=== PATIENT | male | born 1955 | race Caucasian/White ===

== ENCOUNTER 2016-11-08 14:31 | Emergency (ER) | payer MEDICAID ==
[~2016-11-08 14:31] MED LIST: LISINOPRIL 5 MG TAB PO SCH
[2016-11-08 14:51] VITALS: RESP 16; TEMP 97.9; O2SAT 96
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
[2016-11-08 17:06] VITALS: BP 200/110; PULSE 75
--- NOTE | 2016-11-08 17:09 | ASMTCMCOM ---
CM Note CM Note Notes: Patient recently relocated to [place] from [facility]. Patient hopes to have a "fresh start" here in [place] and improve his health. Patient reports he has been sober for about a month and biking a lot. Patient is knowledgeable of local resources including the [place] [facility] and [facility]'s warming correction schedule but patient prefers to sleep outside due to social anxiety and not wanting to be around people who talk about drugs and alcohol. Patient talked a lot about his love of nature, wildlife, and poetry. Patient has warm clothing but this CM was able to find a waterproof rain jacket for him to wear. Patient has already been connected with [facility] and Human [facility] and he states that they would be able to get him into housing in November if he can afford rent. He states he has been receiving Old Age Pension and hopes to get a part-time job to supplement for an apartment. Patient provided information on [facility] and recommended to followup this week. Patient doesn't have a way to be contacted at this time. Patient was also provided information on other homeless resources in the area and [facility]. CM available for further assistance. Date Signed: 11/08/2016 05:08 PM Electronically Signed By:Carol Snyder RN
--- NOTE | 2016-11-09 11:48 | ASDISCHSUM ---
Discharge Information Plan Status:Homeless/[facility] Medically Cleared to Leave: Discharge Date:11/08/2016 05:10 PM CM D/C Disposition:Home, Routine, Self-Care ADT D/C Disposition:Home, Routine, Self-Care Projected Discharge Date:11/08/2016 05:10 PM Transportation at D/C:Self Discharge Delay Reason: Follow-Up Date:11/08/2016 05:10 PM Discharge Slot: Final Diagnosis: Placement Information Patient Contact Information Contact Name:CULVERSPENCER Relationship:Friend Address: Work Phone: City: [facility] Phone: State/Zip Code: Email: Financial Information Financial Class: Primary Plan 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 Patient hopes to have a "fresh start" here in [place] and improve his health. Patient reports he has been sober for about a month and biking a lot. Patient is knowledgeable of local resources including the [place] [facility] and [facility]'s warming [place] [facility] schedule but patient prefers to sleep outside due to social anxiety and not wanting to be around people who talk about drugs and alcohol. Patient talked a lot about his love of nature, wildlife, and poetry. Patient has warm clothing but this was able to find a waterproof rain jacket for him to wear. [facility] and he states that they would be able to get him into housing in November if he can afford rent. He states he has been receiving Old Age Pension and hopes to get a part-time job to supplement for an apartment. Patient provided information on [facility] and recommended to followup this week. Patient doesn't have a way to be contacted at this time. Patient was also provided information on other homeless resources in the area and [facility]. CM available for further assistance. Date Signed: 11/08/2016 05:08 PM Electronically Signed By:Carol Snyder RN Intervention Information
== END 2016-11-08 17:10 | disposition home or self-care (01) ==
DX: I10 Essential (primary) hypertension (principal); Z87.891 Personal history of nicotine dependence

== ENCOUNTER 2017-01-09 09:38 | Emergency (ER) | payer MEDICAID ==
[2017-01-09 09:50] VITALS: BP 150/85; PULSE 77; RESP 16; TEMP 97.7; O2SAT 95
--- NOTE | 2017-01-09 09:56 | EDPHY ---
H & P Stated Complaint: Needs additional B/P medication, - clinic closed today. Time Seen by Provider: 01/09/17 09:55 HPI/ROS: HPI: This is a 61-year-old male presents with Chief Complaint: Needs additional B/P medication, - clinic closed today. Location:heart Quality:high blood pressure Duration: Chronic Signs and Symptoms: No chest pain, no shortness of breath, no palpitations, no abdominal pain, no nausea, no vomiting, no dizziness, no headache Timing: Chronic Severity: Mild Context:history of ETOH, HTN, T10-11 Fx. Takes lisinopril and HCTZ 20/12.5 mg. patient reports that he has a history of hypertension that is controlled by lisinopril and HCTZ combination medication. He has been out in [place] on vacation for the last 2 weeks and took his last pill this morning. He called his primary care provider but the office is closed until Thursday and he comes in today requesting enough blood pressure pills to get him through until he can have a refill called in by his primary care provider. He reports that he feels fine and denies any chest pain, shortness of breath, nausea, vomiting, dizziness. Modifying Factors: None Comment: ROS: see HPI Constitutional: No fever, no chills, no weight loss Eyes: No blurred vision Respiratory: No shortness of breath, no cough Cardiovascular: No chest pain Gastrointestinal: No nausea, no vomiting, no diarrhea Genitourinary: No dysuria Extremities: No myalgias Neurologic: No weakness, no numbness Skin: No rashes Hematologic: No bruising, no bleeding MEDICAL/SURGICAL/SOCIAL HISTORY: Medical history: ETOH, HTN, T10-11 Fx. Surgical history: Denies Social history: Employed CONSTITUTIONAL: Pleasant well-appearing adult male, awake and alert, no obvious distress HEENT: Atraumatic and normocephalic, PERRL, EOMI. Tympanic membranes clear. Oropharynx clear, no exudate and moist pink mucosa. Airway patent. No lymphadenopathy. No meningismus. Cardiovascular: Normal S1/S2, regular rate, regular rhythm, without murmur rub or gallop. PULMONARY/CHEST: Symmetrical and nontender. Clear to auscultation bilaterally. Good air movement. No accessory muscle usage. ABDOMEN: Soft, nondistended, nontender, no rebound, no guarding, no peritoneal signs, no masses or organomegaly. No CVAT. EXTREMITIES: 2/2 pulses, strength 5/5, no deformities, no clubbing, no cyanosis or edema. NEUROLOGICAL: no focal neuro deficits. GCS 15. SKIN: Warm and dry, no erythema. no rash. Good capillary refill. 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 - Social History Smoking Status: Former smoker Constitutional: Initial Vital Signs Temperature (C) 36.5 C 01/09/17 09:47 Heart Rate 77 01/09/17 09:47 Respiratory Rate 16 01/09/17 09:47 Blood Pressure 150/85 H 01/09/17 09:47 O2 Sat (%) 95 01/09/17 09:47 O2 Delivery Mode Room Air Allergies/Adverse Reactions: No Known Allergies Allergy (Unverified 11/08/16 14:46) Home Medications: Medication Instructions Recorded Lisinopril-Hctz 10-12.5 mg Tab 01/09/17 Lisinopril/Hctz 20/12.5MG 1 ea PO DAILY #3 tab 01/09/17 [Zestoretic/Prinzide 20/12.5MG (*)] Medical Decision Making ED Course/Re-evaluation: Blood pressure 150/85 and asymptomatic No workup indicated Patient given 3 pills for refill until he can be seen by his primary care provider early next week. Differential Diagnosis: Differential diagnosis includes but is not limited to hypertension, hyperlipidemia, acute coronary syndrome, hypertensive urgency.. Departure - Departure Disposition: Home, Routine, Self-Care Clinical Impression: Hypertension, essential, Has run out of medications Condition: Good Instructions: Hypertension (ED) Referrals: [facility],. [Clinic] - As per Instructions Prescriptions: Lisinopril/Hctz 20/12.5MG [Zestoretic/Prinzide 20/12.5MG (*)] 1 ea PO DAILY #3 tab
--- NOTE | 2017-01-09 10:40 | ASDISCHSUM ---
Discharge Information Plan Status:Homeless/Group Home Medically Cleared to Leave: Discharge Date:01/09/2017 10:27 AM CM D/C Disposition:Streets (Homeless) ADT D/C Disposition:Home, Routine, Self-Care Projected Discharge Date:01/09/2017 10:27 AM Transportation at D/C:Self Discharge Delay Reason: Follow-Up Date:01/09/2017 10:27 AM Discharge Slot: Final Diagnosis: Placement Information Patient Contact Information Contact Name:CULVERSPENCER Relationship:Friend Address: Work Phone: City: [facility] Phone: State/[place] Code: Email: Financial Information Financial Class: Primary Plan Desc: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 Patient states he is followed by PERRY Carnes at . Patient has been out of town for the last couple of weeks and ran out of his Lisinopril. Patient provided 3 days worth of his Lisinopril and will followup with Baljeet Angulo on Thursday. Patient also states he has plans to follow up with a heating operators engineer because he was recently told that his "left ventricular is not working." This CM called and left voicemail at ([phone]) to ensure patient gets followup appointment and medication refill. 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 Patient very pleasant and appreciative. CM available for further assistance. Date Signed: 01/09/2017 10:37 AM Electronically Signed By:Carol Snyder RN LACE LACE Acuity / Level of Care Answers: No. 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
== END 2017-01-09 10:27 | disposition home or self-care (01) ==
DX: I10 Essential (primary) hypertension (principal); Z76.0 Encounter for issue of repeat prescription; Z87.891 Personal history of nicotine dependence